=== PATIENT | male | born 1995 | race Caucasian/White ===

== ENCOUNTER 2019-01-25 09:14 | Day surgery (SDC) | payer BC ==
[2019-01-25] MEDS ORDERED: LIDOCAINE 2% MPF 5 ML VIAL ONE (09:16)
[2019-01-25] MEDS ORDERED: dexAMETHasone 10 MG/ML VIAL ONE (09:16)
[2019-01-25] MEDS ORDERED: MIDAZOLAM HCL 2 MG/2 ML INJ ONE (09:16)
[2019-01-25] MEDS ORDERED: PROPOFOL 200 MG/20 ML VIAL IV ONE (09:16)
[2019-01-25] MEDS ORDERED: FENTANYL CITR 100 MCG/2 ML ONE ×2 (09:16→10:17)
[2019-01-25] MEDS ORDERED: ROCURONIUM 50 MG/5 ML VIAL IV ONE (09:18)
[2019-01-25] MEDS ORDERED: METHYLENE BLUE 0.5% 10 ML AMP ONE (09:21)
[2019-01-25] MEDS ORDERED: CEFAZOLIN/SWI 1gm 1 GM/10 ML SYR ONE (09:33)
[2019-01-25] MEDS ORDERED: Ringers Lactate 1,000 ML IV ONE ×2 (09:33→10:49)
[2019-01-25 09:34] LABS: Absolute Lymphocytes (CBC) 1.6 K/uL (0.7-4.9); Basophils % 0.7 % (0-1.3); Hematocrit 40.9 % (39.6-49.0); Lymphocytes % 13.5 % (15.3-44.8); MPV 8.2 fL (7.6-11.3); RBC Red Blood Cell Count 4.62 M/uL (4.33-5.43)
[2019-01-25] MEDS ORDERED: BACITRACIN OINTMENT 15 GM TUBE TOP ONE (10:26)
[2019-01-25] MEDS ORDERED: KETOROLAC 30 MG/ML INJ ONE (10:29)
[2019-01-25] MEDS ORDERED: GLYCOPYRROLATE 0.2 MG/ML SYR ONE ×3 (10:39→10:48)
[2019-01-25] MEDS ORDERED: NEOSTIGMINE 1 MG/ML -10 ML VIAL ONE (10:39)
[2019-01-25] MEDS: HYDROMORPHONE HCL 1 MG/ML INJ ONE ×2 (11:00→11:10)
[2019-01-25] MEDS ORDERED: HYDROCODONE/APAP 7.5/325 MG TAB ONE (12:14)
[2019-01-25 14:30] VITALS: BP 112/32; TEMP 98; O2SAT 96
--- NOTE | 2019-01-25 20:41 | OP ---
Date of Procedure: 01/25/2019 Surgeon: Jamie Vicente MD Preoperative Diagnosis: Pilonidal abscess. Postoperative Diagnosis: Pilonidal abscess. Procedure: Wide excision, complex pilonidal abscess. Estimated Blood Loss: Minimal. Specimens: Pus and cyst content. Findings: As above. Anesthesia: General. Complications: None. Patient tolerated the procedure in stable condition and taken to Recovery in good general condition. Procedure In Detail: Patient was brought to the OR and placed in supine position. General anesthesia was begun. Patient was placed in the prone position, prepped and draped in the usual sterile fashion. Marcaine 0.5% was infiltrated locally. Then, approximately 8 x 4 cm incision was made around the abscess down through the subcutaneous tissue. The opening was included in the abscess and it was filled with pus and all inflammatory wall of the cyst was excised until healthy tissue was seen, entire area was excised down to the presacral fascia. Wound irrigated. Bleeding controlled with cautery and then wet-to-dry normal saline dressing change applied. Patient tolerated the procedure in stable condition and taken to Recovery in good general condition. Discharge Note: Patient will go to Day Surgery, then home when stable. Disposition: Home. Condition: Stable. Discharge Instructions: Resume home medications and diet. Activity as tolerated. No heavy lifting. Remove outer dressing. Wet-to-dry normal saline dressing changes daily. [facility] 1 [facility]. We will put a wound VAC in the patient at that time if the infection is under control. Augmentin 875 p.o. b.i.d., Tylenol No.3 one tablet p.o. q.4 p.r.n. pain. /MODL Voice ID: [id number] Report ID: [id number] GERA
== END 2019-01-25 13:15 | disposition home or self-care (01) ==
LOC: OR 09:14
PROVIDERS: ATTEND Surgery
PROC: 0JB90ZZ Excision of Buttock Subcutaneous Tissue and Fascia, Open Approach (ICD-10-PCS; principal; 2019-01-25 10:00)
DX: L05.01 Pilonidal cyst with abscess (principal)
CPT/HCPCS: 87070; 85025; 36415; 87205 ×2; 88304; 87075; 11772; J2704; J2710; J2250; J3010 ×2; J1100; J1170; J0690; J7120 ×2

== ENCOUNTER 2019-06-06 11:01 | Emergency (ER) | payer BC ==
--- OUTSIDE RECORDS SUMMARY | 2019-06-06 11:03 | XMS REPORT ---
:1995 Author Organization [employer] Care Team Providers Name Role Phone Chris, Na Provider Role Unavailable Allergies No Known Allergies Problems Problem Type Condition Code Onset Dates Condition Status Problem Gastroesophageal reflux disease, K21.9 Active esophagitis presence not specified Problem Second hand smoke exposure Z77.22 Active Problem Seasonal allergies J30.2 Active Assessment Pilonidal cyst with abscess L05.01 Active Problem Mild persistent asthma, unspecified J45.30 Active whether complicated Problem Sinusitis J32.9 Active Medications Medication Code Code Instructions Start End Status Dosage System Date Date Augmentin [facility] 89878575776 875-125 MG Jun 05, Active 1 tablet Orally every 12 2018 hrs Augmentin [facility] 91575981294 875-125 MG Jan 30, Active 1 tablet Orally every 12 2019 hrs ProAir [facility] 16980980775 108 (90 Base) Mar 24, Active 2 puffs RespiClick MCG/ACT 2018 as needed Inhalation every 6 hrs Pantoprazole [facility] [id number] 40 MG Orally Mar 24, Active 1 tablet Sodium Once a day 2017 Cetirizine HCl [facility] 66527761000 10 MG Orally Mar 24, Active 1 tablet Once a day 2018 Results No Known Results Summary Purpose [employer] Submission
[2019-06-06] MEDS ORDERED: HYDROCODONE/APAP 7.5/325 MG TAB ONE (11:34)
--- NOTE | 2019-06-06 11:52 | RAD REPORT ---
EXAM DESCRIPTION: RAD - Ankle Right 3 View - 06/06/2019 11:44 am CLINICAL HISTORY: Right ankle pain FINDINGS: On the lateral view there is a vertical lucency overlying the lateral malleolus which may represent a nondisplaced fracture. Lateral soft tissue swelling. No dislocation
--- NOTE | 2019-06-06 11:52 | RAD REPORT ---
EXAM DESCRIPTION: RAD - Foot Right 3 View - 06/06/2019 11:43 am CLINICAL HISTORY: Right foot pain status post injury FINDINGS: On the lateral view there is a vertical lucency overlying the lateral malleolus which may represent a nondisplaced fracture. Lateral soft tissue swelling is seen. No dislocation
--- NOTE | 2019-06-06 11:53 | RAD REPORT ---
EXAM DESCRIPTION: RAD - Tib Fib Right - 06/06/2019 11:44 am CLINICAL HISTORY: Right leg pain FINDINGS: On the lateral view there is a vertical lucency overlying the lateral malleolus which may represent a nondisplaced fracture.
--- NOTE | 2019-06-06 12:03 | ER ---
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 Transition of care: patient was not received from another setting of care. Onset of symptoms was June 06, 2019 at 10:30. Risk Assessment: Do you want to hurt yourself or someone else? Patient reports no desire to harm self or others. Care prior to arrival: Medication(s) given: Motrin, 400 mg. 11:05 Method Of Arrival: Wheelchair hb 11:05 Acuity: MINO 4 hb 12:00 Initial Sepsis Screen: Does the patient meet any 2 criteria? No. Patient's initial iw sepsis screen is negative. Does the patient have a suspected source of infection? No. Patient's initial sepsis screen is negative. Triage Assessment: 12:00 General: Appears in no apparent distress. Behavior is calm. iw Historical: - Allergies: 11:07 No Known Allergies; hb - Home Meds: 11:07 None [Active]; hb - PMHx: 11:07 None; hb - PSHx: 11:07 None; hb - Immunization history:: Adult Immunizations up to date. - Coronavirus screen:: The patient has NOT traveled to [place] in the past 14 days. The patient has NOT had contact with known/suspected case of Coronavirus? Proceed with normal triage procedures. - Social history:: Smoking status: Patient denies any tobacco usage or history of. - Ebola Screening: : No symptoms or risks identified at this time. Screenin:25 Abuse screen: Denies threats or abuse. Denies injuries from another. Nutritional iw screening: No deficits noted. Tuberculosis screening: No symptoms or risk factors identified. Fall Risk None identified. Assessment: 12:00 General: Appears in no apparent distress. Behavior is calm, cooperative. Pain: iw Complains of pain in anterior aspect of right ankle and dorsum of right foot Pain currently is 7 out of 10 on a pain scale. Neuro: Level of Consciousness is awake, alert, obeys commands, Oriented to person, place, time, situation, Moves all extremities. Cardiovascular: Patient's skin is warm and dry. Respiratory: Respiratory effort is even, unlabored, Respiratory pattern is regular, symmetrical. Derm: Skin is intact, is healthy with good turgor. Musculoskeletal: Range of motion: limited in right ankle. Vital Signs: 11:07 BP 133 / 91; Pulse 73; Resp 16; Temp 98.4; Pulse Ox 100% on R/A; Weight 84.37 kg; hb Height 5 ft. 9 in. (175.26 cm); Pain 7/10; 11:07 Body Mass Index 27.47 (84.37 kg, 175.26 cm) hb ED Course: 11:04 Patient arrived in ED. mr 11:06 Triage completed. hb 11:07 Arm band placed on. hb 11:09 Xi[facility]ara Kwon [facility]C [facility] kb 11:09 Gabriele Mock MD is Attending Physician. kb 11:28 Kelly Jackson, THA is Primary Nurse. iw 11:44 Foot Right 3 View XRAY In Process Unspecified. EDMS 11:44 Ankle Right 3 View XRAY In Process Unspecified. EDMS 11:44 Tib Fib Right XRAY In Process Unspecified. EDMS 12:00 Patient has correct armband on for positive identification. iw 12:25 No provider procedures requiring assistance completed. Patient did not have IV access iw during this emergency room visit. Administered Medications: 12:05 Drug: [place] (7.5 mg-325 mg) 1 tabs Route: PO; iw 12:25 Follow up: Response: No adverse reaction iw Outcome: 12:02 Discharge ordered by . kb 12:26 Patient left the ED. bd 12:44 Discharged to home via wheelchair, with family. iw 12:44 Condition: good 12:44 Discharge instructions given to patient, family, Instructed on discharge instructions, follow up and referral plans. medication usage, Demonstrated understanding of instructions, follow-up care, medications, Prescriptions given X 1. Signatures: Dispatcher [employer] EDMS Xiomara Kwon FNP-C FNP-Daisy De Santiago Toby Deepali mr Kelly Jackson, THA RN iw Deana Woodson RN RN hb Corrections: (The following items were deleted from the chart) 11:06 11:05 Care prior to arrival: None. hb hb
--- NOTE | 2019-06-06 12:03 | EDPHYS ---
Physician Documentation [facility] Name: Ash Valerio Age: 24 yrs Sex: Male : 1995 Arrival Date: 06/06/2019 Time: 11:04 Bed 12 Private MD: ED Physician Gabriele Mock HPI: 06/06 14:10 This 24 yrs old Male presents to ER via Wheelchair with complaints of Ankle kb Injury. 14:09 The patient presents with decreased range of motion, an injury, pain, swelling, kb tenderness. The complaints affect the right ankle. 14:10 Onset: The symptoms/episode began/occurred just prior to arrival. Context: The problem kb was sustained at work, resulted from the patient falling, The patient is unable to bear weight. The patient is not able to ambulate. Associated signs and symptoms: Pertinent positives: swelling, Pertinent negatives: calf tenderness, fever, nausea, numbness, rash, tingling, vomiting, warmth, weakness. Modifying factors: The symptoms are alleviated by nothing, the symptoms are aggravated by weight bearing, movement. Severity of symptoms: At their worst the symptoms were moderate, in the emergency department the symptoms are unchanged. The patient has not experienced similar symptoms in the past. The patient has not recently seen a physician. Historical: - Allergies: 11:07 No Known Allergies; hb - Home Meds: 11:07 None [Active]; hb - PMHx: 11:07 None; hb - PSHx: 11:07 None; hb - Immunization history:: Adult Immunizations up to date. - Coronavirus screen:: The patient has NOT traveled to [place] in the past 14 days. The patient has NOT had contact with known/suspected case of Coronavirus? Proceed with normal triage procedures. - Social history:: Smoking status: Patient denies any tobacco usage or history of. - Ebola Screening: : No symptoms or risks identified at this time. ROS: 14:08 Constitutional: Negative for fever, chills, and weight loss, Cardiovascular: Negative kb for chest pain, palpitations, and edema, Respiratory: Negative for shortness of breath, cough, wheezing, and pleuritic chest pain, Abdomen/GI: Negative for abdominal pain, nausea, vomiting, diarrhea, and constipation, Back: Negative for injury and pain, Skin: Negative for injury, rash, and discoloration, Neuro: Negative for headache, weakness, numbness, tingling, and seizure. 14:08 MS/extremity: Positive for injury or acute deformity, decreased range of motion, pain, swelling, tenderness, of the right ankle. Exam: 14:08 Constitutional: This is a well developed, well nourished patient who is awake, alert, kb and in no acute distress. Head/Face: Normocephalic, atraumatic. Chest/axilla: Normal chest wall appearance and motion. Nontender with no deformity. No lesions are appreciated. Cardiovascular: Regular rate and rhythm with a normal S1 and S2. No gallops, murmurs, or rubs. Normal PMI, no JVD. No pulse deficits. Respiratory: Lungs have equal breath sounds bilaterally, clear to auscultation and percussion. No rales, rhonchi or wheezes noted. No increased work of breathing, no retractions or nasal flaring. Abdomen/GI: Soft, non-tender, with normal bowel sounds. No distension or tympany. No guarding or rebound. No evidence of tenderness throughout. Back: No spinal tenderness. No costovertebral tenderness. Full range of motion. Skin: Warm, dry with normal turgor. Normal color with no rashes, no lesions, and no evidence of cellulitis. Neuro: Awake and alert, GCS 15, oriented to person, place, time, and situation. Cranial nerves II-XII grossly intact. Motor strength 5/5 in all extremities. Sensory grossly intact. Cerebellar exam normal. Normal gait. 14:08 Musculoskeletal/extremity: Extremities: grossly normal except: noted in the right ankle: decreased ROM, pain, swelling, tenderness, ROM: limited active range of motion due to pain, in the right ankle, Circulation is intact in all extremities. Sensation intact. Weight bearing: is unable to bear weight. Vital Signs: 11:07 BP 133 / 91; Pulse 73; Resp 16; Temp 98.4; Pulse Ox 100% on R/A; Weight 84.37 kg; hb Height 5 ft. 9 in. (175.26 cm); Pain 7/10; 11:07 Body Mass Index 27.47 (84.37 kg, 175.26 cm) hb MDM: 11:10 Patient medically screened. kb 14:09 Data reviewed: vital signs, nurses notes. Data interpreted: Pulse oximetry: on room air lurdes is 100 %. Interpretation: normal. Counseling: I had a detailed discussion with the patient and/or guardian regarding: the historical points, exam findings, and any diagnostic results supporting the discharge/admit diagnosis, radiology results, the need for outpatient follow up, a orthopedic surgeon, to return to the emergency department if symptoms worsen or persist or if there are any questions or concerns that arise at home. 06/06 11:22 Order name: Foot Right 3 View XRAY kb 06/06 11:22 Order name: Ankle Right 3 View XRAY kb 06/06 11:22 Order name: Tib Fib Right XRAY kb 06/06 11:56 Order name: Short Leg Splint; Complete Time: 12:45 kb Administered Medications: 12:05 Drug: [place] (7.5 mg-325 mg) 1 tabs Route: PO; iw 12:25 Follow up: Response: No adverse reaction iw Disposition: 16:20 Co-signature as Attending Physician, Gabriele Mock MD I agree with the assessment and kdr plan of care. Disposition: 06/06/19 12:02 Discharged to Home. Impression: Nondisplaced fracture of lateral malleolus of right fibula, Sprain of ankle. - Condition is Stable. - Discharge Instructions: Undisplaced Fibular Ankle Fracture Treated With Immobilization, Adult, Ankle Sprain, [id number]. - Prescriptions for Tylenol- Codeine #3 300-30 mg Oral Tablet - take 1 tablet by ORAL route every 6 hours As needed; 15 tablet. - Medication Reconciliation Form, Thank You Letter, Antibiotic Education, Prescription Opioid Use, Work release form form. - Follow up: Emergency Department; When: As needed; Reason: Worsening of condition. Follow up: Private Physician; When: 2 - 3 days; Reason: Recheck today's complaints, Continuance of care, Re-evaluation by your physician. - Notes: Rest, Ice, and Elevate ankle above the level of your heart to decrease swelling Use crutches until told otherwise by orthopedist. Follow up with orthopedist this week Signatures: Dispatcher [employer] EDXiomara Nelson FNP-C FNP-Ckb Dirrim, Barbara bd Rittger, Kevin, MD MD [facility] Kelly Jackson RN RN iw Deana Woodson RN RN hb Corrections: (The following items were deleted from the chart) 12:26 12:02 06/06/2019 12:02 Discharged to Home. Impression: Nondisplaced fracture of lateral bd malleolus of right fibula; Sprain of ankle. Condition is Stable. Forms are Medication Reconciliation Form, Thank You Letter, Antibiotic Education, Prescription Opioid Use. Follow up: Emergency Department; When: As needed; Reason: Worsening of condition. Follow up: Private Physician; When: 2 - 3 days; Reason: Recheck today's complaints, Continuance of care, Re-evaluation by your physician. kb
== END 2019-06-06 12:26 | disposition home or self-care (01) ==
LOC: ER 11:01
PROC: 2W3QX1Z Immobilization of Right Lower Leg using Splint (ICD-10-PCS; principal; 2019-06-06)
DX: S82.64XA Nondisplaced fracture of lateral malleolus of right fibula, initial encounter for closed fracture (principal); S93.401A Sprain of unspecified ligament of right ankle, initial encounter; W19.XXXA Unspecified fall, initial encounter; Y93.9 Activity, unspecified; Y92.89 Other specified places as the place of occurrence of the external cause; Y99.8 Other external cause status
CPT/HCPCS: 99283